=== PATIENT | male | born 2000 | race Caucasian/White ===

== ENCOUNTER 2020-01-02 11:42 | Emergency (ER) | payer SELFPAY ==
--- NOTE | 2020-01-02 12:15 | ED Physician Documentation ---
PD HPI CHEST PAIN - Stated complaint Stated Complaint: CP/L SHOULDER PX - Chief complaint Chief Complaint: Cardiac - History obtained from History obtained from: Patient - History of Present Illness Timing - onset: How many days ago (3) Timing - onset during: Light activity Timing - duration: Days (3) Timing - details: Abrupt onset, Still present, Waxing and waning Quality: Pressure, Tightness Location: Left chest Radiation: Back Improved by: Rest Worsened by: Exertion. No: Inspiration, Eating, Palpation Associated symptoms: Shortness of air (mild). No: Nausea, Feeling faint / dizzy, Palpitations, Cough Similar symptoms before: Has not had sx before Recently seen: Not recently seen Review of Systems Constitutional: denies: Fever, Chills Nose: denies: Rhinorrhea / runny nose, Congestion Throat: denies: Sore throat Cardiac: reports: Chest pain / pressure. denies: Palpitations, Pedal edema, Calf pain Respiratory: denies: Cough, Wheezing GI: denies: Nausea, Vomiting, Diarrhea Skin: denies: Rash, Lesions Musculoskeletal: denies: Extremity swelling Neurologic: denies: Near syncope PD PAST MEDICAL HISTORY - Past Medical History Past Medical History: Yes Cardiovascular: None Respiratory: None Neuro: None Endocrine/Autoimmune: None Other Past Medical History: fibrous dyplasia - Past Surgical History Past Surgical History: Yes - Present Medications Home Medications: Ambulatory Orders Medication Instructions Recorded Confirmed Naproxen 375 mg PO TID #30 tablet 01/02/20 - Allergies Allergies/Adverse Reactions: Allergies Allergy/AdvReac Type Severity Reaction Status Date / Time No Known Drug Allergies Allergy Verified 01/02/20 12:02 - Social History Does the pt smoke?: Yes Smoking Status: Former smoker Does the pt drink ETOH?: No Does the pt have substance abuse?: No - Family History Family history: reports: CAD, Sudden - Immunizations Immunizations are current?: Yes - POLST Patient has POLST: No PD ED PE NORMAL - Vitals Vital signs reviewed: Yes - General General: Alert and oriented X 3, Well developed/nourished - HEENT HEENT: Pharynx benign - Neck Neck: Supple, no meningeal sign, No adenopathy - Cardiac Cardiac: RRR, No murmur - Respiratory Respiratory: Clear bilaterally - Abdomen Abdomen: Soft, Non tender - Derm Derm: Normal color, Warm and dry - Extremities Extremities: No tenderness to palpate, Normal ROM s pain, No edema, No calf tenderness / cord - Neuro Neuro: Alert and oriented X 3, No motor deficit, Normal speech Results - Vitals Vitals: Oxygen O2 Source Room air - EKG (time done) 12:16 Rate: Rate (enter#) (78) Rhythm: NSR [place]: Normal QRS: Normal Ischemia: Normal ST segments, ST elevation c/w repol. No: ST elevation c/w ischemia, ST depression Compare to prior EKG: Old EKG unavailable - Labs Labs: Laboratory Tests 01/02/20 01/02/20 01/02/20 13:10 13:10 13:10 WBC 6.7 RBC 4.87 Hgb 14.4 Hct 43.1 MCV 88.5 MCH 29.6 MCHC 33.4 RDW 12.2 Plt Count 195 MPV 10.7 Neut # (Auto) 3.8 Lymph # (Auto) 2.1 Stearns # (Auto) 0.6 Eos # (Auto) 0.1 Baso # (Auto) 0.0 Absolute Nucleated RBC 0.00 Nucleated RBC % 0.0 Sodium 138 Potassium 4.0 Chloride 98 L Carbon Dioxide 29 Anion Gap 11.0 BUN 14 Creatinine 0.7 Estimated GFR (MDRD) 142 Glucose 90 Calcium 9.5 Total Bilirubin 0.2 AST 19 ALT 16 Alkaline Phosphatase 59 Troponin I High Sens < 2.3 L B-Natriuretic Peptide Total Protein 7.2 Albumin 4.5 Globulin 2.7 Albumin/Globulin Ratio 1.7 Lipase 23 01/02/20 13:10 WBC RBC Hgb Hct MCV MCH MCHC RDW Plt Count MPV Neut # (Auto) Lymph # (Auto) Stearns # (Auto) Eos # (Auto) Baso # (Auto) Absolute Nucleated RBC Nucleated RBC % Sodium Potassium Chloride Carbon Dioxide Anion Gap BUN Creatinine Estimated GFR (MDRD) Glucose Calcium Total Bilirubin AST ALT Alkaline Phosphatase Troponin I High Sens B-Natriuretic Peptide 16 Total Protein Albumin Globulin Albumin/Globulin Ratio Lipase - Rads (name of study) chest xray Radiology: Prelim report reviewed (no acute process), See rad report ECHO Radiology: Prelim report reviewed (normal ECHO), See rad report PD MEDICAL DECISION MAKING - ED course Complexity details: re-evaluated patient (normal labs, ECG, CXR and ECHO. No signs of significant cause of chest pressure/discomfort. ), considered differential (consider ACS, though is young. Also consider pneumonia, PTX, myocarditis, pericarditis. Low score for Wells criteria. ), d/w patient Departure - Departure Disposition: 01 Home, Self Care Clinical Impression: Left-sided chest pain Condition: Stable Record reviewed to determine appropriate education?: Yes Instructions: ED Chest Pain NonCardiac Prescriptions: Naproxen 375 mg PO TID #30 tablet Comments: Your tests appear normal which include an echocardiogram (ultrasound of the heart), chest x-ray, EKG, blood test to evaluate for heart failure or heart attack. No signs of acute abnormalities. I presume the pains you are having are therefore musculoskeletal or inflammatory. I would suggest some naproxen anti-inflammatory twice daily with food for the next 7 to 10 days. No signs of more significant cause. Discharge Date/Time: 01/02/20 15:42
[2020-01-02] MEDS ORDERED: KETOROLAC 15 MG/ML VIAL IVP STA (13:02)
[2020-01-02 13:13] LABS: BASOPHILS % (AUTO) 0.6 %; EOSINOPHILS # (AUTO) 0.1 10^3/uL (0.0-0.7); EOSINOPHILS % (AUTO) 1.2 %; HGB - HEMOGLOBIN 14.4 g/dL (14.0-18.0); LYMPHOCYTES # (AUTO) 2.1 10^3/uL (1.5-3.5); LYMPHOCYTES % (AUTO) 31.6 %; MEAN CORPUSCULAR HEMOGLOBIN 29.6 pg (27.0-31.0); MEAN CORPUSCULAR HGB CONC 33.4 g/dL (32.0-36.0); MEAN CORPUSCULAR VOLUME 88.5 fL (80.0-94.0); MEAN PLATELET VOLUME 10.7 fL (7.4-11.4); MONOCYTES # (AUTO) 0.6 10^3/uL (0.0-1.0); NEUTROPHILS # (AUTO) 3.8 10^3/uL (1.5-6.6); NEUTROPHILS % (AUTO) 57.3 %; PLT - PLATELET COUNT 195 10^3/uL (130-450); RED BLOOD COUNT 4.87 10^6/uL (4.70-6.10); RED CELL DISTRIBUTION WIDTH 12.2 % (12.0-15.0); WHITE BLOOD COUNT 6.7 x10^3/uL (4.8-10.8)
--- NOTE | 2020-01-02 13:25 | XRAY Report ---
PROCEDURE: Chest 1 View X-Ray INDICATIONS: Chest Pain TECHNIQUE: One view of the chest was acquired. COMPARISON: None FINDINGS: Surgical changes and devices: None. Lungs and pleura: No pleural effusions or pneumothorax. Lungs are clear. Mediastinum: Mediastinal contours appear normal. Heart size is normal. Bones and chest wall: No suspicious bony lesions. Overlying soft tissues appear unremarkable. IMPRESSION: No acute process. Reviewed by: Reji Do MD on 01/02/2020 1:24 PM PDT Approved by: Reji Do MD on 01/02/2020 1:24 PM PDT Station ID: [id number]
[2020-01-02 13:27] LABS: ALBUMIN 4.5 g/dL (3.2-5.5); ALBUMIN/GLOBULIN RATIO 1.7 (1.0-2.2); BILIRUBIN,TOTAL 0.2 mg/dL (0.2-1.0); CALCIUM 9.5 mg/dL (8.5-10.3); CREATININE 0.7 mg/dL (0.6-1.2); TOTAL PROTEIN 7.2 g/dL (6.7-8.2)
[2020-01-02 15:36] VITALS: BP 117/66
== END 2020-01-02 15:42 | disposition home or self-care (01) ==
LOC: ED 11:42
DX: R07.9 Chest pain, unspecified (principal); Z87.891 Personal history of nicotine dependence
CPT/HCPCS: 36415; 71045; 80053; 83690; 83880; 84484; 85025; 93005; 93306; 99284

== ENCOUNTER 2020-04-07 22:56 | Outpatient (CLI) | payer OTHER | END 2020-04-07 22:57 | disposition home or self-care (01) | LOC: COV 22:56 | PROVIDERS: ATTEND Family Medicine | DX: Z20.828 Contact with and (suspected) exposure to other viral communicable diseases (principal) ==

== ENCOUNTER 2020-04-22 17:32 | Outpatient (CLI) | payer OTHER | END 2020-04-22 17:33 | disposition home or self-care (01) | LOC: COV 17:32 | PROVIDERS: ATTEND Family Medicine | DX: R50.9 Fever, unspecified (principal); R05 Cough; J02.9 Acute pharyngitis, unspecified; Z20.828 Contact with and (suspected) exposure to other viral communicable diseases ==

== ENCOUNTER 2020-06-12 08:03 | Emergency (ER) | payer SELFPAY ==
[2020-06-12 08:32] VITALS: BP 169/75
--- NOTE | 2020-06-12 09:30 | ED Physician Documentation ---
PD HPI SKIN - Stated complaint Stated Complaint: BACK RASH - Chief complaint Chief Complaint: Wound - History obtained from History obtained from: Patient - History of Present Illness Timing - onset: How many years ago (1) Timing - duration: Years (1) Timing - details: Gradual onset, Still present, Waxing and waning Location: Back Quality / character: Draining, Other (blood) Improved by: Other (cleaning) Associated symptoms: No: Fever, Myalgias, Joint pain, Headache, Facial swelling, Dyspnea, Abd pain, N/V/D, Urinary sx Similar symptoms before: No diagnosis Recently seen: Not recently seen - Additional information Additional information: 19-year-old male has noticed that there is a small lump at the end of his tailbone and this is drained and has bled slightly and he feels there is a small cyst back there he is not currently having any drainage but does have some bleeding he has been keeping the area very clean its not tenderness not otherwise bothering him. He has become concerned because he continues to have blood coming from this area when he does clean up. Review of Systems Constitutional: denies: Fever Eyes: denies: Decreased vision Ears: denies: Ear pain Nose: denies: Congestion Throat: denies: Sore throat Respiratory: denies: Dyspnea, Cough GI: denies: Abdominal Pain, Nausea, Vomiting, Diarrhea : denies: Dysuria, Frequency PD PAST MEDICAL HISTORY - Past Medical History Cardiovascular: None Respiratory: None Neuro: None Endocrine/Autoimmune: None GI: None : None HEENT: None Psych: None Musculoskeletal: None Derm: None - Past Surgical History Past Surgical History: Yes General: Other - Present Medications Home Medications: Ambulatory Orders Medication Instructions Recorded Confirmed No Known Home Medications 06/12/20 06/12/20 - Allergies Allergies/Adverse Reactions: Allergies Allergy/AdvReac Type Severity Reaction Status Date / Time No Known Drug Allergies Allergy Verified 06/12/20 08:32 - Social History Does the pt smoke?: Yes Smoking Status: Former smoker Does the pt drink ETOH?: No Does the pt have substance abuse?: No - Immunizations Immunizations are current?: Yes - POLST Patient has POLST: No PD ED PE NORMAL - Vitals Vital signs reviewed: Yes (hypertensive ) - General General: Alert and oriented X 3, No acute distress, Well developed/nourished - HEENT HEENT: Atraumatic, PERRL, EOMI - Respiratory Respiratory: No respiratory distress - Back Back: No CVA TTP, No spinal TTP, Other (Right at the junction between the sacrum and the coccyx there is 1/2 cm hole in the skin there is no swelling to the cyst does appear deflated and it is not tender specifically. This appears to be a pilonidal cyst that is opened and not currently inflamed.) - Derm Derm: Normal color, Warm and dry, No rash - Extremities Extremities: No deformity, No edema - Neuro Neuro: Alert and oriented X 3, mr teacher 2-12 intact, No motor deficit, No sensory deficit, Normal speech Eye Opening: Spontaneous Motor: Obeys Commands Verbal: Oriented GCS Score: 15 - Psych Psych: Normal mood, Normal affect Results - Vitals Vitals: Vital Signs - 24 hr 06/12/20 08:29 Temperature 36.4 C L Heart Rate 83 Respiratory 16 Rate Blood Pressure 169/75 H O2 Saturation 100 Oxygen O2 Source Room air PD MEDICAL DECISION MAKING - ED course Complexity details: considered differential, d/w patient ED course: 19-year-old male who appears to have a pilonidal cyst that is opened it is not currently inflamed I will refer him to surgery for evaluation Departure - Departure Disposition: Home, Self Care Clinical Impression: Pilonidal cyst without abscess Condition: Stable Instructions: ED Cyst Pilonidal Not Infec Follow-Up: Saqib Daly MD [Provider Admit Priv/Credential] -
== END 2020-06-12 09:42 | disposition home or self-care (01) ==
LOC: ED 08:03
DX: L05.91 Pilonidal cyst without abscess (principal); Z87.891 Personal history of nicotine dependence
CPT/HCPCS: 99281; 99284

== ENCOUNTER 2021-11-15 16:04 | Emergency (ER) | payer MEDICAID ==
[2021-11-15 16:50] VITALS: BP 124/90
--- NOTE | 2021-11-15 17:25 | XRAY Report ---
PROCEDURE: Hand 3 View RT INDICATIONS: Trauma TECHNIQUE: 3 views of the hand(s) acquired. COMPARISON: None FINDINGS: Bones: No fractures or dislocations. No suspicious bony lesions. Soft tissues: No suspicious soft tissue calcifications. No focal soft tissue swelling or radiopaque foreign body. IMPRESSION: Unremarkable appearance of the hand. Reviewed by: Oscar Zarate DO on 11/15/2021 4:24 PM MARGARITA Approved by: Oscar Zarate DO on 11/15/2021 4:24 PM MARGARITA Station ID: [id number]
--- NOTE | 2021-11-15 19:08 | ED Physician Documentation ---
History of Present Illness - Stated complaint Stated Complaint: RT HAND INJ - Chief complaint Chief Complaint: Trauma Ext - Additonal information Additional information: [id number] male presents emergency department for evaluation of acute right hand pain. He got angry this morning and punched a wall. He is right- hand dominant. Review of Systems Constitutional: reports: Reviewed and negative Throat: reports: Reviewed and negative Cardiac: reports: Reviewed and negative Respiratory: reports: Reviewed and negative GI: reports: Reviewed and negative Musculoskeletal: reports: Extremity pain Neurologic: reports: Reviewed and negative Psychiatric: reports: Reviewed and negative PD PAST MEDICAL HISTORY - Past Medical History Cardiovascular: None Respiratory: None Neuro: None Endocrine/Autoimmune: None GI: None : None HEENT: None Psych: None Musculoskeletal: None Derm: None - Past Surgical History Past Surgical History: Yes General: Other - Present Medications Home Medications: Ambulatory Orders Medication Instructions Recorded Confirmed No Known Home Medications 06/12/20 11/15/21 - Allergies Allergies/Adverse Reactions: Allergies Allergy/AdvReac Type Severity Reaction Status Date / Time No Known Drug Allergies Allergy Verified 11/15/21 16:49 - Social History Does the pt smoke?: Yes Smoking Status: Former smoker Does the pt drink ETOH?: No Does the pt have substance abuse?: No - Immunizations Immunizations are current?: Yes - POLST Patient has POLST: No PD ED PE EXPANDED - General General: Alert, No acute distress - Extremities Extremities: Right hand (Swelling ecchymosis and superficial abrasion dorsum of right hand over the middle ring and small finger MCP joints. Reduced flexion of the hand secondary to pain. 2+ DP pulse. No obvious deformity.) Results - Vitals Vitals: Vital Signs - 24 hr 11/15/21 16:47 Temperature 37.4 C Heart Rate 94 Respiratory 18 Rate Blood Pressure 124/90 H O2 Saturation 97 Oxygen O2 Source Room air - Rads (name of study) right hand Radiology: Final report received (No acute fracture or osseous lesion or dislocation) PD MEDICAL DECISION MAKING - ED course Complexity details: considered differential, d/w patient ED course: 21-year-old male presents emergency department for acute injury to the right hand after he punched a wall this morning. He did it twice. He is right-hand dominant. He has a fair amount of ecchymosis swelling over the MCP joints of the middle ring and small fingers. He does have pain with flexion. No evidence of tendon injury. X-ray is negative. Patient is placed in a Velcro splint advised ice and ibuprofen. Advised that if symptoms not markedly better in 7 to 10 days to have the hand reimaged. Departure - Departure Disposition: 01 Home, Self Care Clinical Impression: Contusion of right hand Qualifiers: Encounter type: initial encounter Qualified Code(s): S60.221A - Contusion of right hand, initial encounter Condition: Stable Record reviewed to determine appropriate education?: Yes Instructions: ED Contusion Hand Ch Comments: Yefri yen are seen today in the emergency department after punching a wall twice. You have a large amount of swelling and bruising over the MCP joint of your right hand. The x-ray does not show an obvious fracture. This is most likely a contusion or deep bruising that should begin to resolve over the next 7 to 10 days. If your symptoms or not improving in your ability to make a fist is not better then you should have your hand francisco-rayed to rule out occult fracture. In general ice your hand for 10 minutes 2-3 times a day. You can take ibuprofen 600 mg with food 2-3 times a day or alternate with Tylenol.
== END 2021-11-15 19:19 | disposition home or self-care (01) ==
LOC: ED 16:04
DX: S60.221A Contusion of right hand, initial encounter (principal); W22.8XXA Striking against or struck by other objects, initial encounter; Z87.891 Personal history of nicotine dependence
CPT/HCPCS: 99282; 99283